=== PATIENT | female | born 1975 | race African-American/Black ===

== ENCOUNTER 2017-07-18 13:11 | Outpatient (CLI) | payer OTHER | END 2017-07-18 13:12 | disposition home or self-care (01) | LOC: BICULT 13:11 | PROVIDERS: ATTEND Family Medicine | DX: N92.0 Excessive and frequent menstruation with regular cycle (principal); R10.2 Pelvic and perineal pain; D25.9 Leiomyoma of uterus, unspecified | CPT/HCPCS: 76856 ==